=== PATIENT | female | born 1965 | race Caucasian/White ===

== ENCOUNTER → 2016-08-09 | Outpatient (CLI) | payer MEDICAID ==
--- NOTE | ~2016-08-09 | MY11 ---
[facility] A Service of [facility] & [facility] RADIOLOGY TEXT RESULTS PATIENT: LILIANA BLAKE LOCATION: [facility] : 69 UNIT #: [id number] AGE: [address]: Jaelyn Nation MD SEX: F ORDER DR: [id number] [facility] [place], [place] [address] [id number] O MR#: [id number] Acc #: [id number] NAME: LILIANA BLAKE. : 1965 SEX: F STUDY DATE/TIME: 08/09/2016 16:02 UNIT: [facility] ROOM: STUDY DESCRIPTION: MY Mammogram Screening Dig Erick Attending Physician: Jaelyn Nation M.D. Referring Physician: Jaelyn Nation M.D. Ordering Physician: Jaelyn Nation M.D. Primary Care Physician: Jaelyn Nation M.D. MEDICAL IMAGING REPORT This report is preliminary unless electronic signature is present EXAM Bilateral digital screening mammogram with CAD. COMPARISON STUDIES Outside mammograms performed at [facility] and [facility], [address] [place] [address], [id number] dated October 08, 2013, January 20, 2012, and January 22, 2011. INDICATION Breast cancer screening. 50-year-old asymptomatic female. No personal or family history of breast cancer. FINDINGS There are scattered fibroglandular densities. There are intact bilateral subpectoral saline breast implants. No suspicious findings are seen in either breast. IMPRESSION 1. No mammographic evidence of malignancy. Continued annual screening mammography and clinical breast exam are recommended. 2. Intact saline breast implants. Patients over the age of 40 are entered into a reminder system with target due date for the next mammogram. A result letter will also be sent to the patient. BIRADS: 2 Benign finding. Dictated by... Elfego Blas M.D. [facility] A Service [facility] & [facility] RADIOLOGY TEXT RESULTS PATIENT: LILIANA BLAKE LOCATION: [facility] : 69 UNIT #: [id number] AGE: [address]: Jaelyn Nation MD SEX: F ORDER DR: THIS IS AN ELECTRONICALLY VERIFIED REPORT Elfego Blas M.D. at 08/16/2016 2:48 PM FEDER[place]/jen TD: 08/13/2016 14:20 JOB #: [id number] MEDICAL IMAGING REPORT Page 1 of 1 COPY
== END | disposition home or self-care (01) ==
LOC: CWCC 15:39
DX: Z12.31 Encounter for screening mammogram for malignant neoplasm of breast (principal); Z98.82 Breast implant status
CPT/HCPCS: G0202